=== PATIENT | female | born 1935 | race African-American/Black ===

== ENCOUNTER → 2024-07-14 | Outpatient (CLI) | payer MEDICARE ==
[~2024-07-14] MED LIST: ALLO100T PO; ATOR10TA69 PO; ESTR0.5T2 PO; GABA-529 PO; OMEP20TA23 PO; OXYB-52 PO; TERA2CAP4 PO; [UNRECOGNIZED DRUG - CODE] PO
== END | disposition home or self-care (01) ==
LOC: NM 08:18
PROVIDERS: ATTEND Internal Medicine
DX: E03.9 Hypothyroidism, unspecified (principal)
CPT/HCPCS: 78014; A9516